=== PATIENT | female | born 1990 | race American Indian/Alaskan Native ===

== ENCOUNTER 2017-10-27 20:55 | Emergency (ER) | payer MEDICAID | END 2017-10-27 21:05 | disposition left against medical advice (07) | LOC: ED 20:55 | DX: R42 Dizziness and giddiness (principal); Z53.21 Procedure and treatment not carried out due to patient leaving prior to being seen by health care provider ==

== ENCOUNTER 2018-01-27 12:53 | Emergency (ER) | payer MEDICAID ==
[2018-01-27 12:59] VITALS: BP 167/98
[2018-01-27 14:21] LABS: HCG Qualitative,Urine Negative (Negative)
[2018-01-27 14:25] LABS: Bacteria,Urine 1+ /HPF (Negative); Bilirubin,Urine NEG (Negative); Blood,Urine NEG (Negative); Color,Urine Yellow (Yellow); Mucus,Urine FEW /HPF; Urobilinogen,Urine < 2.0 mg/dL (<2.0)
== END 2018-01-27 16:15 | disposition left against medical advice (07) ==
LOC: ED 12:53
DX: R10.9 Unspecified abdominal pain (principal); Z53.21 Procedure and treatment not carried out due to patient leaving prior to being seen by health care provider
CPT/HCPCS: 81001; 81025

== ENCOUNTER 2019-12-19 07:29 | Emergency (ER) | payer MEDICAID ==
[2019-12-19 07:40] VITALS: BP 163/104
[2019-12-19 09:48] LABS: Bilirubin,Urine NEG (Negative); Blood,Urine LG (Negative); Color,Urine Yellow (Yellow); Mucus,Urine FEW /HPF; Urobilinogen,Urine < 2.0 mg/dL (<2.0)
[2019-12-19 09:51] LABS: RBC,Urine > 182.0 /HPF (0.0-6.0)
[2019-12-19] MEDS ORDERED: MORPHINE 4 MG/1 ML INJ IV ONE (10:08)
[2019-12-19] MEDS ORDERED: ONDANSETRON 4 MG/2 ML INJ IV ONE (10:08)
[2019-12-19] MEDS ORDERED: SODIUM CHLORIDE 0.9% 1000 ML 1,000 ML IV ONE (10:08)
[2019-12-19 10:30] LABS: Basophils # (Auto) 0.1 K/mm3 (0.0-0.1); Basophils % (Auto) 1.1 % (0.0-1.8); Eosinophils # (Auto) 0.2 K/mm3 (0.0-0.4); Eosinophils % (Auto) 2.4 % (0.0-4.3); Hematocrit 39.4 % (30.3-42.9); Hemoglobin 13.3 gm/dl (10.1-14.3); Lymphocytes # (Auto) 3.4 K/mm3 (1.2-5.4); Lymphocytes % (Auto) 49.3 % (13.4-35.0); Mean Corpuscular HGB Conc 34 % (30-34); Mean Corpuscular Volume 84 fl (79-97); Monocytes # (Auto) 0.3 K/mm3 (0.0-0.8); Monocytes % (Auto) 4.1 % (0.0-7.3); Platelet Count 287 K/mm3 (140-440); Red Blood Count 4.72 M/mm3 (3.65-5.03); Red Cell Distribution Width 13.3 % (13.2-15.2)
[2019-12-19 10:42] LABS: Alanine Aminotransferase 17 units/L (7-56); Albumin 4.1 g/dL (3.9-5); BUN/Creatinine Ratio 18; Blood Urea Nitrogen 9 mg/dL (7-17); Hemolysis Index 13
--- NOTE | 2019-12-19 10:43 | Emergency Department Report ---
ED Abdominal Pain HPI - General Chief Complaint: Abdominal Pain Stated Complaint: LEFT ABD PAIN Time Seen by Provider: 12/19/19 09:00 Source: patient Mode of arrival: Ambulatory Limitations: No Limitations - History of Present Illness Initial Comments: This is a 29-year-old female nontoxic, well nourished in appearance, no acute signs of distress presents to the ED with c/o of nausea and abdominal pain 1 day. Patient denies any vomiting. Patient describes abdominal pain as cramping and aching with level of 8/10 left sided abdominal pain. Patient denies chest pain, short of breath, fever, chills, headache, stiff neck, numbness or tingling. Patient denies any diarrhea or constipation. Patient denies any recent travels. Patient denies any allergies. Patient is currently on her menstrual cycle. MD Complaint: abdominal pain -: days(s) Location: LUQ Radiation: none Migration to: no migration Severity: mild Severity scale (0 -10): 8 Quality: cramping, aching Consistency: constant Improves With: nothing Worsens With: nothing Associated Symptoms: nausea. denies: vomiting, diarrhea, fever, chills, constipation, dysuria, hematemesis, hematochezia, melena, hematuria, anorexia, syncope - Related Data Home Medications Medication Instructions Recorded Confirmed Last Taken Cardizem 240 mg PO DAILY 02/13/15 02/13/15 Unknown Previous Rx's Medication Instructions Recorded Last Taken Type Ondansetron [Zofran Odt] 4 mg PO Q8HR PRN #20 tab.rapdis 12/19/19 Unknown Rx Sulfamethoxazole/Trimethoprim 1 each PO BID #14 tablet 12/19/19 Unknown Rx [Bactrim DS TAB] Allergies Allergy/AdvReac Type Severity Reaction Status Date / Time No Known Allergies Allergy Verified 01/27/18 12:56 ED Review of Systems ROS: Stated complaint: LEFT ABD PAIN Other details as noted in HPI Constitutional: denies: chills, fever Eyes: denies: eye pain, eye discharge, vision change ENT: denies: ear pain, throat pain Respiratory: denies: cough, shortness of breath, wheezing Cardiovascular: denies: chest pain, palpitations Endocrine: no symptoms reported Gastrointestinal: abdominal pain, nausea. denies: vomiting, diarrhea Genitourinary: denies: urgency, dysuria, discharge Musculoskeletal: denies: back pain, joint swelling, arthralgia Skin: denies: rash, lesions Neurological: denies: headache, weakness, paresthesias Psychiatric: denies: anxiety, depression Hematological/Lymphatic: denies: easy bleeding, easy bruising ED Past Medical Hx - Past Medical History Previous Medical History?: Yes Hx Asthma: Yes Additional medical history: MVP - Surgical History Past Surgical History?: Yes Additional Surgical History: C section. Tubal ligation. Hernia repair - Social History Smoking Status: Never Smoker Substance Use Type: None - Medications Home Medications: Home Medications Medication Instructions Recorded Confirmed Last Taken Type Cardizem 240 mg PO DAILY 02/13/15 02/13/15 Unknown History Ondansetron [Zofran Odt] 4 mg PO Q8HR PRN #20 tab.rapdis 12/19/19 Unknown Rx Sulfamethoxazole/Trimethoprim 1 each PO BID #14 tablet 12/19/19 Unknown Rx [Bactrim DS TAB] ED Physical Exam - General Limitations: No Limitations General appearance: alert, in no apparent distress - Head Head exam: Present: atraumatic, normocephalic - Eye Eye exam: Present: normal appearance - Neck Neck exam: Present: normal inspection, full ROM. Absent: tenderness, meningismus, lymphadenopathy - Respiratory Respiratory exam: Present: normal lung sounds bilaterally. Absent: respiratory distress, wheezes, rales, rhonchi, stridor, chest wall tenderness, accessory muscle use, decreased breath sounds, prolonged expiratory - Cardiovascular Cardiovascular Exam: Present: regular rate, normal rhythm, normal heart sounds. Absent: irregular rhythm, systolic murmur, diastolic murmur, rubs, gallop - GI/Abdominal GI/Abdominal exam: Present: soft, tenderness (LUQ), normal bowel sounds. Absent: distended, guarding, rebound, rigid, diminished bowel sounds - Extremities Exam Extremities exam: Present: normal inspection, full ROM - Back Exam Back exam: Present: normal inspection, full ROM. Absent: tenderness, CVA tenderness (R), CVA tenderness (L), muscle spasm, paraspinal tenderness, vertebral tenderness, rash noted - Neurological Exam Neurological exam: Present: alert, oriented X3, normal gait - Psychiatric Psychiatric exam: Present: normal affect, normal mood - Skin Skin exam: Present: warm, dry, intact, normal color. Absent: rash ED Course Vital Signs 12/19/19 07:37 Temperature 98.1 F Pulse Rate 104 H Respiratory 16 Rate Blood Pressure 163/104 O2 Sat by Pulse 98 Oximetry - Reevaluation(s) Reevaluation #1: 12/19/19 10:44 Patient is speaking in full sentences with no signs of distress noted. ED Medical Decision Making - Lab Data Result diagrams: 12/19/19 09:32 12/19/19 09:32 - Medical Decision Making This is a 29-year-old female that presents with abdominal pain. Patient is stable and was examined by me. There is no abdominal tenderness. Negative signs of symptoms of appendicitis. Labs obtained. UA obtained. CT of abdomen obtained and dictated by the radiologist. Patient is notified of the report with no questions noted by the patient. Vital signs are stable prior to discharge. Patient received medical treatment in the ED which patient stated symptoms has resovled and subsided. Was instructed note to operate any machinery due to p ossible drowsiness and stated someone will drive the patient home. A by mouth challenge has been obtained and patient tolerated well with no nausea vomiting. Patient was notified of strict precatuions of appendictis symptoms and to return to the ED if symptoms occurs as soon as possible. Patient was also instructed to Follow-up with a primary care doctor in 3-5 days or if symptoms worsen and continue return to emergency room as soon as possible. At time of discharge, the patient does not seem toxic or ill in appearance. No acute signs of distress noted. Patient agrees to discharge treatment plan of care. No further questions noted by the patient. Critical care attestation.: If time is entered above; I have spent that time in minutes in the direct care of this critically ill patient, excluding procedure time. ED Disposition Clinical Impression: Abdominal pain Qualifiers: Abdominal location: generalized Qualified Code(s): R10.84 - Generalized abdominal pain Nausea & vomiting Qualifiers: Vomiting type: unspecified Vomiting Intractability: non-intractable Qualified Code(s): R11.2 - Nausea with vomiting, unspecified UTI (urinary tract infection) Qualifiers: Urinary tract infection type: acute cystitis Hematuria presence: without hematuria Qualified Code(s): N30.00 - Acute cystitis without hematuria Disposition: TO HOME OR SELFCARE Is pt being admited?: No Does the pt Need Aspirin: No Condition: Stable Instructions: Acute Nausea and Vomiting (ED), Abdominal Pain (ED) Additional Instructions: Follow-up with a primary care doctor in 3-5 days or if symptoms worsen and continue return to emergency room as soon as possible. Prescriptions: Sulfamethoxazole/Trimethoprim [Bactrim DS TAB] 1 each PO BID #14 tablet Ondansetron [Zofran Odt] 4 mg PO Q8HR PRN #20 tab.rapdis PRN Reason: Nausea Referrals: PARMJIT SKELTON MD [Primary Care Provider] - 3-5 Days PRIMARY CAREMD [Referring] - 3-5 Days DENA SEVILLA MD [Staff Physician] - 3-5 Days [facility] [Outside] - 3-5 Days Forms: Work/School Release Form(ED)
--- NOTE | 2019-12-19 12:43 | Cat Scan Report ---
CT abdomen pelvis w con INDICATION: left sided abd pain. TECHNIQUE: All CT scans at this location are performed using the following dose modulation technique: Automated exposure control. Helical slices were obtained through the abdomen and pelvis. 100 cc of Omnipaque 30 0 is administered. COMPARISON: None available. FINDINGS: Abdomen: There is linear atelectasis in the lower chest. The liver, spleen, pancreas, adrenal glands, and kidneys show no acute abnormality. There has been prior hernia repair with mesh. There is no obs truction, inflammation, or free air. There are no abnormal collections. The appendix is unremarkable Pelvis: There is no obstruction or inflammation. There are no abnormal fluid collections. There is no free air. On review of bone windows, no acute osseous abnormalities are seen. On review of bone windows, no acute osseous abnormalities are seen. There is disc protrusion at L4-5. IMPRESSION: 1. There is no obstruction, inflammation, or free air. There are no abnormal fluid collections. The a ppendix is unremarkable. Signer Name: Erasmo Torres MD Signed: 12/19/2019 12:39 PM Workstation Name: [id number]
== END 2019-12-19 15:01 | disposition home or self-care (01) ==
LOC: ED 07:29
DX: R10.84 Generalized abdominal pain (principal); R11.2 Nausea with vomiting, unspecified; N39.0 Urinary tract infection, site not specified
CPT/HCPCS: 36415; 74177; 80053; 81001; 83690; 84703; 85025; 87086; 96361; 96374; 96375; 99284; J2270; J2405; J7030; Q9967

== ENCOUNTER 2019-12-24 16:28 | Emergency (ER) | payer OTHER, MEDICAID ==
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
[2019-12-24 17:09] LABS: Basophils # (Auto) 0.1 K/mm3 (0.0-0.1); Basophils % (Auto) 0.8 % (0.0-1.8); Eosinophils # (Auto) 0.2 K/mm3 (0.0-0.4); Eosinophils % (Auto) 2.1 % (0.0-4.3); Hematocrit 41.5 % (30.3-42.9); Hemoglobin 13.8 gm/dl (10.1-14.3); Lymphocytes # (Auto) 3.3 K/mm3 (1.2-5.4); Lymphocytes % (Auto) 41.3 % (13.4-35.0); Mean Corpuscular HGB Conc 33 % (30-34); Mean Corpuscular Volume 84 fl (79-97); Monocytes # (Auto) 0.4 K/mm3 (0.0-0.8); Monocytes % (Auto) 4.9 % (0.0-7.3); Platelet Count 301 K/mm3 (140-440); Red Blood Count 4.94 M/mm3 (3.65-5.03); Red Cell Distribution Width 13.5 % (13.2-15.2)
[2019-12-24 17:30] LABS: Alanine Aminotransferase 18 units/L (7-56); Albumin 4.5 g/dL (3.9-5); BUN/Creatinine Ratio 17; Blood Urea Nitrogen 10 mg/dL (7-17); Calcium 9.7 mg/dL (8.4-10.2); Hemolysis Index 28
[2019-12-24 17:36] LABS: Bilirubin,Direct < 0.2 mg/dL (0-0.2)
[2019-12-24] MEDS ORDERED: HYDROcodone/ACETAMINOPHEN 5-325 MG TAB PO ONE (19:53)
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
[2019-12-24 20:44] LABS: Bacteria,Urine 2+ /HPF (Negative); Bilirubin,Urine NEG (Negative); Blood,Urine SM (Negative); Color,Urine Yellow (Yellow); Mucus,Urine 1+ /HPF; Urobilinogen,Urine < 2.0 mg/dL (<2.0)
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
--- NOTE | 2019-12-24 20:47 | XRay Report ---
CHEST 2 VIEWS, 12/24/2019 8:13 PM INDICATION: History of cardiac surgery. COMPARISON: Chest radiograph, 11/27/2014 FINDINGS: Support devices: None Heart: The heart appears normal in size. Lungs/pleura: Pulmonary vascularity is within normal limits. There is no focal airspace consolidation or significant pleural effusion. Additional findings: No significant acute abnormality. IMPRESSION: 1. No evidence of acute cardiopulmonary process. Signer Name: Lynn Germain MD Signed: 12/24/2019 8:42 PM Workstation Name: [id number]
[2019-12-24 21:29] VITALS: BP 138/91
== END 2019-12-24 21:33 | disposition home or self-care (01) ==
LOC: ED 16:28
DX: K59.00 Constipation, unspecified (principal); M79.10 Myalgia, unspecified site; R73.9 Hyperglycemia, unspecified; R07.89 Other chest pain; R10.9 Unspecified abdominal pain; M25.511 Pain in right shoulder; M25.512 Pain in left shoulder; J45.909 Unspecified asthma, uncomplicated; Z98.51 Tubal ligation status; Z98.890 Other specified postprocedural states; Z79.899 Other long term (current) drug therapy; V49.49XA Driver injured in collision with other motor vehicles in traffic accident, initial encounter; Y93.89 Activity, other specified; Y92.410 Unspecified street and highway as the place of occurrence of the external cause; Y99.8 Other external cause status
CPT/HCPCS: 36415; 71046; 74019; 80048; 80076; 81001; 83690; 84703; 85025

== ENCOUNTER 2020-08-21 17:19 | Emergency (ER) | payer MEDICAID ==
--- NOTE | 2020-08-21 18:32 | Emergency Department Report ---
Blank Doc - Documentation Documentation: 30-year-old female that presents with dizziness, headache, nausea, and left lo wer abdominal pain. Vitals: HTN and tachycardia 122. This initial assessment/diagnostic orders/clinical plan/treatment(s) is/are subject to change based on patient's health status, clinical progression and re- assessment by fellow clinical providers in the ED. Further treatment and workup at subsequent clinical providers discretion. Patient/guardians urged not to elope from the ED as their condition may be serious if not clinically assessed and managed. Initial orders include: 1-labs 2-EKG 3- CT head
[2020-08-21 18:35] VITALS: BP 178/118
--- NOTE | 2020-08-21 19:34 | Cat Scan Report ---
CT head/brain wo con INDICATION / CLINICAL INFORMATION: 30 years Female; headache/dizziness w/ HTN. TECHNIQUE: Routine CT head without contrast. All CT scans at this location are performed using CT dos e reduction for ALARA by means of automated exposure control. COMPARISON: The study is compared to the previous CT of 02/29/2020. FINDINGS: BRAIN / INTRACRANIAL CONTENTS: The brain parenchyma appears to demonstrate appropriate attenuation wi thout significant interval change from the previous CT. The ventricular system remains unchanged in s ize and configuration. There is no clear CT evidence of acute intracranial hemorrhage or significant mass effect. ORBITS: No significant abnormality of visualized orbits. SINUSES / MASTOIDS: No significant abnormality in the visualized paranasal sinuses or mastoid air luis antonio ls. CRANIOCERVICAL JUNCTION: No significant abnormality. ADDITIONAL FINDINGS: None. IMPRESSION: 1. There is no CT evidence of acute intracranial process. Signer Name: Aristides Iglesias MD Signed: 08/21/2020 7:30 PM Workstation Name: [id number]
[2020-08-21 19:46] LABS: Basophils # (Auto) 0.1 K/mm3 (0.0-0.1); Basophils % (Auto) 0.7 % (0.0-1.8); Eosinophils % (Auto) 0.6 % (0.0-4.3); Hematocrit 41.9 % (30.3-42.9); Lymphocytes # (Auto) 2.7 K/mm3 (1.2-5.4); Lymphocytes % (Auto) 34.7 % (13.4-35.0); Mean Corpuscular HGB Conc 33 % (30-34); Mean Corpuscular Volume 86 fl (79-97); Monocytes # (Auto) 0.4 K/mm3 (0.0-0.8); Platelet Count 324 K/mm3 (140-440); Red Blood Count 4.86 M/mm3 (3.65-5.03); Red Cell Distribution Width 13.3 % (13.2-15.2)
[2020-08-21 20:07] LABS: Alanine Aminotransferase 15 units/L (7-56); Albumin 4.4 g/dL (3.9-5); Blood Urea Nitrogen 8 mg/dL (7-17); Calcium 9.7 mg/dL (8.4-10.2); Hemolysis Index 9
[2020-08-21 20:12] LABS: BUN/Creatinine Ratio 16
[2020-08-21] MEDS ORDERED: METOCLOPRAMIDE 10 MG/2 ML INJ IV ONE (22:08)
[2020-08-21] MEDS ORDERED: diphenhydrAMINE 50 MG/ML VIAL IV ONE (22:08)
[2020-08-21] MEDS ORDERED: SODIUM CHLORIDE 0.9% 1000 ML 1,000 ML IV ONE (22:08)
[2020-08-21 23:16] LABS: Amphetamine Screen,Urine PRESUMPTIVE NEGATIVE; Benzodiazepines Screen,Urine PRESUMPTIVE NEGATIVE; Cannabinoid Screen,Urine PRESUMPTIVE POSITIVE; Cocaine Screen,Urine PRESUMPTIVE NEGATIVE; Methadone Screen,Urine PRESUMPTIVE NEGATIVE; Opiate Screen,Urine PRESUMPTIVE NEGATIVE
[2020-08-21 23:48] LABS: Bacteria,Urine 4+ /HPF (Negative); Bilirubin,Urine NEG (Negative); Blood,Urine LG (Negative); Color,Urine Yellow (Yellow); Mucus,Urine 1+ /HPF; Urobilinogen,Urine < 2.0 mg/dL (<2.0)
[2020-08-21 23:50] LABS: HCG Qualitative,Urine Negative (Negative)
--- NOTE | 2020-08-22 01:00 | Emergency Department Report ---
ED General Adult HPI - General Chief complaint: Vaginal Bleeding Stated complaint: DIZINESS/ABD PAIN/BLEEDING Time Seen by Provider: 08/21/20 18:29 Source: patient Mode of arrival: Ambulatory Limitations: No Limitations - History of Present Illness Initial comments: Patient is a 30-year-old female that presents with dizziness, headache, nausea, and left lower abdominal pain X2 days. Patient states vaginal bleeding stopped on last night. Patient denies fevers or chills. Last nausea /vomiting was 5 hours ago. Patient states history of EtOH and marijuana. Symptoms are exacerbated by p.o. intake. Symptoms are relieved by nothing tried. Patient d enies dysuria, frequency, or urgency. There is no pelvic or back pain patient denies possibility for STD - Related Data Home Medications Medication Instructions Recorded Confirmed Last Taken Cardizem 240 mg PO DAILY 02/13/15 02/13/15 Unknown Previous Rx's Medication Instructions Recorded Last Taken Type Sulfamethoxazole/Trimethoprim 1 each PO BID #14 tablet 12/19/19 Unknown Rx [Bactrim DS TAB] Docusate Sodium [Colace] 100 mg PO BID PRN #14 capsule 12/24/19 Unknown Rx Acetaminophen [Non-Aspirin Extra 500 mg PO Q6HR PRN #30 tablet 05/21/20 Unknown Rx Strength] Famotidine [Pepcid] 20 mg PO BID #60 tablet 05/21/20 Unknown Rx Angelica Root [Angelica] 250 mg PO QID PRN #30 capsule 05/21/20 Unknown Rx Metoclopramide [Reglan] 10 mg PO QID PRN #30 tablet 05/21/20 Unknown Rx Ciprofloxacin HCl [Ciprofloxacin 500 mg PO BID 7 Days #14 tablet 08/22/20 Unknown Rx TAB] Ibuprofen [Motrin 800 MG tab] 800 mg PO Q8HR PRN #30 tablet 08/22/20 Unknown Rx Allergies Allergy/AdvReac Type Severity Reaction Status Date / Time No Known Allergies Allergy Verified 01/27/18 12:56 ED Review of Systems ROS: Stated complaint: DIZINESS/ABD PAIN/BLEEDING Other details as noted in HPI Constitutional: denies: chills, fever Eyes: denies: eye pain, eye discharge, vision change ENT: denies: ear pain, throat pain Respiratory: no symptoms reported Cardiovascular: denies: chest pain, palpitations Endocrine: no symptoms reported Gastrointestinal: abdominal pain, nausea, vomiting Genitourinary: denies: urgency, dysuria, discharge Musculoskeletal: denies: back pain, joint swelling, arthralgia Skin: denies: rash, lesions Neurological: denies: headache, weakness, paresthesias Psychiatric: denies: anxiety, depression Hematological/Lymphatic: denies: easy bleeding, easy bruising ED Past Medical Hx - Past Medical History Previous Medical History?: Yes Hx Hypertension: Yes Hx Diabetes: Yes Hx Asthma: Yes Additional medical history: MVP - Surgical History Past Surgical History?: Yes Additional Surgical History: C section. Tubal ligation. Hernia repair - Social History Smoking Status: Never Smoker Substance Use Type: None - Medications Home Medications: Home Medications Medication Instructions Recorded Confirmed Last Taken Type Cardizem 240 mg PO DAILY 02/13/15 02/13/15 Unknown History Sulfamethoxazole/Trimethoprim 1 each PO BID #14 tablet 12/19/19 Unknown Rx [Bactrim DS TAB] Docusate Sodium [Colace] 100 mg PO BID PRN #14 capsule 12/24/19 Unknown Rx Acetaminophen [Non-Aspirin Extra 500 mg PO Q6HR PRN #30 tablet 05/21/20 Unknown Rx Strength] Famotidine [Pepcid] 20 mg PO BID #60 tablet 05/21/20 Unknown Rx Angelica Root [Angelica] 250 mg PO QID PRN #30 capsule 05/21/20 Unknown Rx Metoclopramide [Reglan] 10 mg PO QID PRN #30 tablet 05/21/20 Unknown Rx Ciprofloxacin HCl [Ciprofloxacin 500 mg PO BID 7 Days #14 tablet 08/22/20 Un known Rx TAB] Ibuprofen [Motrin 800 MG tab] 800 mg PO Q8HR PRN #30 tablet 08/22/20 Unknown Rx ED Physical Exam - General Limitations: No Limitations General appearance: alert, in no apparent distress - Head Head exam: Present: atraumatic, normocephalic - Eye Eye exam: Present: normal appearance, PERRL, EOMI - ENT ENT exam: Present: mucous membranes moist - Neck Neck exam: Present: normal inspection, full ROM (Discharge). Absent: tenderness - Respiratory Respiratory exam: Present: normal lung sounds bilaterally. Absent: respiratory distress, wheezes, stridor, chest wall tenderness - Cardiovascular Cardiovascular Exam: Present: regular rate, normal rhythm, normal heart sounds - GI/Abdominal GI/Abdominal exam: Present: soft, normal bowel sounds. Absent: distended, tenderness, guarding, rebound, rigid, bruit, hernia - Rectal Rectal exam: Present: deferred - Extremities Exam Extremities exam: Present: normal inspection - Back Exam Back exam: Present: normal inspection, full ROM. Absent: tenderness, CVA tenderness (R), CVA tenderness (L), vertebral tenderness - Neurological Exam Neurological exam: Present: alert, oriented X3, CN II-XII intact, normal gait - Psychiatric Psychiatric exam: Present: normal affect, normal mood - Skin Skin exam: Present: warm, dry, intact, normal color. Absent: rash ED Course Vital Signs 08/21/20 18:34 Temperature 97.8 F Pulse Rate 112 H Respiratory 28 H Rate Blood Pressure 178/118 [Right] O2 Sat by Pulse 97 Oximetry ED Medical Decision Making - Lab Data Result diagrams: 08/21/20 19:23 08/21/20 19:23 Labs 08/21/20 08/21/20 08/21/20 18:49 19:23 19:23 WBC 7.9 RBC 4.86 Hgb 14.0 Hct 41.9 MCV 86 MCH 29 MCHC 33 RDW 13.3 Plt Count 324 Lymph % (Auto) 34.7 [place] % (Auto) 5.0 Eos % (Auto) 0.6 Baso % (Auto) 0.7 Lymph # (Auto) 2.7 [place] # (Auto) 0.4 Eos # (Auto) 0.0 Baso # (Auto) 0.1 Seg Neutrophils % 59.0 Seg Neutrophils # 4.6 Sodium 133 L Potassium 4.1 Chloride 93.5 L Carbon Dioxide 25 Anion Gap 19 BUN 8 Creatinine 0.5 L Estimated GFR > 60 BUN/Creatinine Ratio 16 Glucose 262 H POC Glucose 225 H Calcium 9.7 Total Bilirubin 0.20 AST 17 ALT 15 Alkaline Phosphatase 76 Troponin T < 0.010 Total Protein 8.7 H Albumin 4.4 Albumin/Globulin Ratio 1.0 Urine Color Urine Turbidity Urine pH Ur Specific [place] Urine Protein Urine Glucose (UA) Urine Ketones Urine Blood Urine Nitrite Urine Bilirubin Urine Urobilinogen Ur Leukocyte Esterase Urine WBC (Auto) Urine RBC (Auto) U Epithel Cells (Auto) Urine Bacteria (Auto) Urine Mucus Urine HCG, Qual Urine Opiates Screen Urine Methadone Screen Ur Barbiturates Screen Ur Phencyclidine Scrn Ur Amphetamines Screen U Benzodiazepines Scrn Urine Cocaine Screen U Marijuana (THC) Screen Drugs of Abuse Note 08/21/20 08/21/20 08/21/20 22:54 22:55 22:55 WBC RBC Hgb Hct MCV MCH MCHC RDW Plt Count Lymph % (Auto) [place] % (Auto) Eos % (Auto) Baso % (Auto) Lymph # (Auto) [place] # (Auto) Eos # (Auto) Baso # (Auto) Seg Neutrophils % Seg Neutrophils # Sodium Potassium Chloride Carbon Dioxide Anion Gap BUN Creatinine Estimated GFR BUN/Creatinine Ratio Glucose POC Glucose Calcium Total Bilirubin AST ALT Alkaline Phosphatase Troponin T Total Protein Albumin Albumin/Globulin Ratio Urine Color Yellow Urine Turbidity Cloudy Urine pH 7.0 Ur Specific [place] 1.020 Urine Protein 100 mg/dl Urine Glucose (UA) >=500 Urine Ketones Tr Urine Blood Lg Urine Nitrite Pos Urine Bilirubin Neg Urine Urobilinogen < 2.0 Ur Leukocyte Esterase Sm Urine WBC (Auto) 22.0 H Urine RBC (Auto) 7.0 U Epithel Cells (Auto) 33.0 H Urine Bacteria (Auto) 4+ Urine Mucus 1+ Urine HCG, Qual Negative Urine Opiates Screen Presumptive negative Urine Methadone Screen Presumptive negative Ur Barbiturates Screen Presumptive negative Ur Phencyclidine Scrn Presumptive negative Ur Amphetamines Screen Presumptive negative U Benzodiazepines Scrn Presumptive negative Urine Cocaine Screen Presumptive negative U Marijuana (THC) Screen Presumptive positive Drugs of Abuse Note Disclamer - Radiology Data Radiology results: report reviewed, image reviewed Patient Name: ALINE FUNEZ Gender: Female Date of : 1990 Referring Provider: GIFTY CUEVAS Organization: [facility] Accession Number: [id number] Requested Date: August 21, 2020 18:33 Report Status: Final Requested Procedure: 1 Procedure Description: CT head/brain wo con Modality: CT Findings Reporting MD: Aristides Iglesias Dictation Time: August 21, 2020 18:30 Residency Director: Not available Supervisor [employer] Date: CT head/brain wo con INDICATION / CLINICAL INFORMATION: 30 years Female; headache/dizziness w/ HTN. TECHNIQUE: Routine CT head without contrast. All CT scans at this location are performed using CT dose reduction for ALARA by means of automated exposure control. COMPARISON: The study is compared to the previous CT of 02/29/2020. FINDINGS: BRAIN / INTRACRANIAL CONTENTS: The brain parenchyma appears to demonstrate appropriate attenuation without significant interval change from the previous CT. The ventricular system remains unchanged in size and configuration. There is no clear CT evidence of acute intracranial hemorrhage or significant mass effect. ORBITS: No significant abnormality of visualized orbits. SINUSES / MASTOIDS: No significant abnormality in the visualized paranasal sinuses or mastoid air cells. CRANIOCERVICAL JUNCTION: No significant abnormality. ADDITIONAL FINDINGS: None. IMPRESSION: 1. There is no CT evidence of acute intracranial process. Signer Name: Aristides Iglesias MD Signed: 08/21/2020 6:30 PM Workstation Name: [id number] - Medical Decision Making Symptoms improved , pt is tolerating po intake, UA: pos Leuk, Nitrates, [place], , plan: Cipro, ibuprofen , hydrated, follow up with pcp in 2-3 days. Critical care attestation.: If time is entered above; I have spent that time in minutes in the direct care of this critically ill patient, excluding procedure time. ED Disposition Clinical Impression: UTI (urinary tract infection) Qualifiers: Urinary tract infection type: acute cystitis Hematuria presence: without hematuria Qualified Code(s): N30.00 - Acute cystitis without hematuria Disposition: DC- TO HOME OR SELFCARE Is pt being admited?: No Does the pt Need Aspirin: No Condition: Stable Instructions: Urinary Tract Infection in Women (ED) Prescriptions: Ciprofloxacin HCl [Ciprofloxacin TAB] 500 mg PO BID 7 Days #14 tablet Ibuprofen [Motrin 800 MG tab] 800 mg PO Q8HR PRN #30 tablet PRN Reason: pain Referrals: GUERITA HOFF MD [Staff Physician] - 3-5 Days Forms: Work/School Release Form(ED) Time of Disposition: 01:13
== END 2020-08-22 01:20 | disposition home or self-care (01) ==
LOC: ED 17:19
DX: N39.0 Urinary tract infection, site not specified (principal); I10 Essential (primary) hypertension; E11.9 Type 2 diabetes mellitus without complications; J45.909 Unspecified asthma, uncomplicated; Z79.899 Other long term (current) drug therapy; Z98.890 Other specified postprocedural states; Z98.51 Tubal ligation status
CPT/HCPCS: 36415; 70450; 80053; 80307; 81001; 81025; 82962; 84484; 85025; 87086; 96361; 96374; 96375; 99284; J1200; J2765; J7030; 87076; 87186

== ENCOUNTER 2020-10-01 17:19 | Emergency (ER) | payer MEDICAID ==
[2020-10-01 17:55] VITALS: BP 154/113
== END 2020-10-01 19:42 | disposition left against medical advice (07) ==
LOC: ED 17:19
DX: R51.9 Headache, unspecified (principal); R42 Dizziness and giddiness; R11.0 Nausea; Z53.21 Procedure and treatment not carried out due to patient leaving prior to being seen by health care provider

== ENCOUNTER 2021-02-14 09:50 | Emergency (ER) | payer MEDICAID ==
[2021-02-14 10:25] VITALS: BP 166/101
[2021-02-14] MEDS ORDERED: RABIES IMMUNE GLOBULIN P/F 300 UNIT/ML INJ 5 ML IM ONE ×2 (11:00)
[2021-02-14] MEDS ORDERED: RABIES VACCINE, HUMAN DIPLOID/PF 2.5 UNIT/ML VIAL IM ONE (11:00)
--- NOTE | 2021-02-14 11:16 | Emergency Department Report ---
ED Animal Bite HPI - General Chief Complaint: Animal Bite Stated Complaint: POSSIBLE RABIES EXPOSURE Time Seen by Provider: 02/14/21 10:19 Source: patient Mode of arrival: Ambulatory Limitations: No Limitations - History of Present Illness Initial Comments: This is a 30-year-old female brought by mother nontoxic, well nourished in appearance, no acute signs of distress presents to the ED with c/o of possible cat scratch to left hand that occurred yesterday. Patient stated she just bought the cat and while the cat was outside started to foam out of the mouth and ran away and possibly scratched her. Patient denies any visual is of abrasions. Patient denies any head trauma or any other trauma. PAtient denies any information on vaccines. Patient states that he is up-to-date with tetanus. Patient denies any fever, chills, nausea, vomiting, headache, stiff neck. Patient denies any allergies or significant past medical history. Patient stat ed is unable to locate the cat. Patient stated last tetanus shot was in 2016. -: days(s) Left: Hand Animal: cat Animal Control Notified: No Description: household pet Mechanism: scratch Severity scale (0 -10): 3 Context: unprovoked Associated Symptoms: none. denies: erythema, discharge from wound, bleeding, fever, chills, rash, loss of consciousness, cough, headache, diaphoresis, shortness of breath - Related Data Patient Tetanus UTD: Yes (2016) Home Medications Medication Instructions Recorded Confirmed Last Taken Cardizem 240 mg PO DAILY 02/13/15 02/13/15 Unknown Previous Rx's Medication Instructions Recorded Last Taken Type Sulfamethoxazole/Trimethoprim 1 each PO BID #14 tablet 12/19/19 Unknown Rx [Bactrim DS TAB] Docusate Sodium [Colace] 100 mg PO BID PRN #14 capsule 12/24/19 Unknown Rx Acetaminophen [Non-Aspirin Extra 500 mg PO Q6HR PRN #30 tablet 05/21/20 Unknown Rx Strength] Famotidine [Pepcid] 20 mg PO BID #60 tablet 05/21/20 Unknown Rx Angelica Root [Angelica] 250 mg PO QID PRN #30 capsule 05/21/20 Unknown Rx Metoclopramide [Reglan] 10 mg PO QID PRN #30 tablet 05/21/20 Unknown Rx Ciprofloxacin HCl [Ciprofloxacin 500 mg PO BID 7 Days #14 tablet 10/28/20 Unknown Rx TAB] Ibuprofen [Motrin 800 MG tab] 800 mg PO Q8HR PRN #30 tablet 08/22/20 Unknown Rx Azithromycin [Zithromax Z-LASHAUN] 250 mg PO DAILY #6 tablet 02/14/21 Unknown Rx Allergies Allergy/AdvReac Type Severity Reaction Status Date / Time No Known Allergies Allergy Verified 02/14/21 10:21 ED Review of Systems ROS: Stated complaint: POSSIBLE RABIES EXPOSURE Other details as noted in HPI Comment: All other systems reviewed and negative Constitutional: denies: chills, fever Eyes: denies: eye pain, eye discharge, vision change ENT: denies: ear pain, throat pain Respiratory: denies: cough, shortness of breath, wheezing Cardiovascular: denies: chest pain, palpitations Endocrine: no symptoms reported Gastrointestinal: denies: abdominal pain, nausea, diarrhea Genitourinary: denies: urgency, dysuria, discharge Musculoskeletal: denies: back pain, joint swelling, arthralgia Skin: denies: rash, lesions Neurological: denies: headache, weakness, paresthesias Psychiatric: denies: anxiety, depression Hematological/Lymphatic: denies: easy bleeding, easy bruising ED Past Medical Hx - Past Medical History Hx Hypertension: Yes Hx Diabetes: Yes Hx Asthma: Yes Additional medical history: MVP - Surgical History Additional Surgical History: C section. Tubal ligation. Hernia repair - Social History Smoking Status: Never Smoker Substance Use Type: None - Medications Home Medications: Home Medications Medication Instructions Recorded Confirmed Last Taken Type Cardizem 240 mg PO DAILY 02/13/15 02/13/15 Unknown History Sulfamethoxazole/Trimethoprim 1 each PO BID #14 tablet 12/19/19 Unknown Rx [Bactrim DS TAB] Docusate Sodium [Colace] 100 mg PO BID PRN #14 capsule 12/24/19 Unknown Rx Acetaminophen [Non-Aspirin Extra 500 mg PO Q6HR PRN #30 tablet 05/21/20 Unknown Rx Strength] Famotidine [Pepcid] 20 mg PO BID #60 tablet 05/21/20 Unknown Rx Angelica Root [Angelica] 250 mg PO QID PRN #30 capsule 05/21/20 Unknown Rx Metoclopramide [Reglan] 10 mg PO QID PRN #30 tablet 05/21/20 Unknown Rx Ciprofloxacin HCl [Ciprofloxacin 500 mg PO BID 7 Days #14 tablet 08/22/20 Unknown Rx TAB] Ibuprofen [Motrin 800 MG tab] 800 mg PO Q8HR PRN #30 tablet 08/22/20 Unknown Rx Azithromycin [Zithromax Z-LASHAUN] 250 mg PO DAILY #6 tablet 02/14/21 Unknown Rx ED Physical Exam - General Limitations: No Limitations General appearance: alert, in no apparent distress - Head Head exam: Present: atraumatic, normocephalic - Eye Eye exam: Present: normal appearance - Neck Neck exam: Present: normal inspection, full ROM - Respiratory Respiratory exam: Absent: respiratory distress - Cardiovascular Cardiovascular Exam: Present: regular rate - Extremities Exam Extremities exam: Present: normal inspection, full ROM, normal capillary refill. Absent: tenderness, joint swelling - Back Exam Back exam: Present: normal inspection, full ROM - Neurological Exam Neurological exam: Present: alert, oriented X3, normal gait - Psychiatric Psychiatric exam: Present: normal affect, normal mood - Skin Skin exam: Present: warm, dry, intact, normal color. Absent: rash ED Course Vital Signs 02/14/21 10:24 Temperature 98.5 F Pulse Rate 102 H Respiratory 20 Rate Blood Pressure 166/101 [Right] O2 Sat by Pulse 95 Oximetry - Reevaluation(s) Reevaluation #1: 02/14/21 11:14 Patient is speaking in full sentences with no signs of distress noted. Critical care attestation.: If time is entered above; I have spent that time in minutes in the direct care of this critically ill patient, excluding procedure time. ED Disposition Clinical Impression: Cat scratch of hand Qualifiers: Encounter type: initial encounter Laterality: left Qualified Code(s): S60.512A - Abrasion of left hand, initial encounter; W55.03XA - Scratched by cat, initial encounter Disposition: DC-01 TO HOME OR SELFCARE Is pt being admited?: No Does the pt Need Aspirin: No Condition: Stable Instructions: Abrasion, Rabies, Rabies Immune Globulin, human RIG solution for injection Additional Instructions: Follow-up with a primary care doctor in 3-5 days or if symptoms worsen and continue return to emergency room as soon as possible. You have been given referrals to complete your rabies vaccines on days 02/17/2021, 02/21/2021, and 02/28/2021. Prescriptions: Azithromycin [Zithromax Z-LASHAUN] 250 mg PO DAILY #6 tablet Referrals: PRIMARY CARE, [Referring] - 3-5 Days DENA SEVILLA MD [Staff Physician] - 3-5 Days Time of Disposition: 11:19 ED Medical Decision Making - Medical Decision Making 30-year-old female that presents with cat scratch and possible rabies exposure. Patient is stable and was examined by me. Patient received immunoglobulin and rabies vaccine. Patient be discharged with a Z-Lashaun. Patient was instructed to receive the rabies vaccine 3,7, and 14. Patient was given referrals to get the full rabies vaccine. Patient was instructed to follow-up with a primary care doctor in 3-5 days or if symptoms worsen and continue return to emergency room as soon as possible. At time of discharge, the patient does not seem toxic or ill in appearance. No acute signs of distress noted. Patient agrees to discharge treatment plan of care. No further questions noted by the patient.
== END 2021-02-14 11:32 | disposition home or self-care (01) ==
LOC: ED 09:50
DX: S60.512A Abrasion of left hand, initial encounter (principal); I10 Essential (primary) hypertension; E11.9 Type 2 diabetes mellitus without complications; J45.909 Unspecified asthma, uncomplicated; Z98.890 Other specified postprocedural states; Z79.1 Long term (current) use of non-steroidal anti-inflammatories (NSAID); Z79.2 Long term (current) use of antibiotics; Z79.899 Other long term (current) drug therapy; W55.03XA Scratched by cat, initial encounter; Y93.89 Activity, other specified; Y92.89 Other specified places as the place of occurrence of the external cause; Y99.8 Other external cause status
CPT/HCPCS: 90375; 90471; 90675; 96372; 99282

== ENCOUNTER 2021-04-02 19:46 | Emergency (ER) | payer MEDICAID ==
[2021-04-02 21:06] VITALS: BP 150/83
--- NOTE | 2021-04-02 22:58 | Cat Scan Report ---
CT abdomen pelvis wo con INDICATION / CLINICAL INFORMATION: Patient complains of abdominal pain with vomiting x 1 day.. TECHNIQUE: Axial CT imaging of abdomen and pelvis was obtained without contrast. Coronal and sagittal reformatte d imaging obtained and reviewed. All CT scans at this location are performed using CT dose reduction for ALARA by means of automated exposure control. COMPARISON: None available. FINDINGS: CT abdomen without contrast demonstrates grossly normal appearance of the liver, spleen, pancreas, ki dneys, and adrenal glands. Gallbladder is present and without appreciable abnormality. CT pelvis without contrast demonstrates a mildly enlarged uterus. No pelvic mass, free fluid, or foca l inflammatory changes noted. A normal appendix is present. There is a large amount of stool seen thr oughout the colon suggesting mild constipation. The GI tract is otherwise unremarkable. Visualized lung bases are clear. No acute osseous abnormality. IMPRESSION: 1. No acute finding within the abdomen or pelvis. 2. Moderate amount retained stool present throughout the colon suggesting constipation. Signer Name: Soumya Conroy MD Signed: 04/02/2021 10:54 PM Workstation Name: [id number]
[2021-04-02 23:04] LABS: Basophils # (Auto) 0.1 K/mm3 (0.0-0.1); Basophils % (Auto) 1.6 % (0.0-1.8); Eosinophils # (Auto) 0.2 K/mm3 (0.0-0.4); Eosinophils % (Auto) 1.7 % (0.0-4.3); Hematocrit 39.7 % (30.3-42.9); Hemoglobin 13.1 gm/dl (10.1-14.3); Lymphocytes # (Auto) 3.4 K/mm3 (1.2-5.4); Lymphocytes % (Auto) 35.4 % (13.4-35.0); Mean Corpuscular HGB Conc 33 % (30-34); Mean Corpuscular Volume 83 fl (79-97); Monocytes # (Auto) 0.5 K/mm3 (0.0-0.8); Monocytes % (Auto) 4.9 % (0.0-7.3); Platelet Count 295 K/mm3 (140-440); Red Blood Count 4.79 M/mm3 (3.65-5.03); Red Cell Distribution Width 13.3 % (13.2-15.2)
[2021-04-02 23:27] LABS: Alanine Aminotransferase 20 units/L (7-56); Albumin 4.4 g/dL (3.9-5); Blood Urea Nitrogen 11 mg/dL (7-17); Calcium 9.3 mg/dL (8.4-10.2); Hemolysis Index 5
[2021-04-03] LABS: BUN/Creatinine Ratio 22; Bilirubin,Direct < 0.2 mg/dL (0-0.2)
--- NOTE | 2021-04-03 01:40 | Emergency Department Report ---
<JOSEFALETHEA - Last Filed: 04/16/21 22:46> ED Abdominal Pain HPI - General Chief Complaint: Abdominal Pain Stated Complaint: CHEST PAIN/VOMITING/STOMACH PAIN Time Seen by Provider: 04/02/21 21:17 Source: patient Mode of arrival: Ambulatory Limitations: No Limitations - History of Present Illness MD Complaint: abdominal pain -: Gradual, days(s) (2) Location: epigastric Radiation: none Migration to: other Severity: mild, moderate Quality: dull (Chest area) Consistency: constant Improves With: nothing Worsens With: nothing Associated Symptoms: denies: nausea, vomiting, diarrhea, constipation, melena, anorexia, syncope - Related Data Home Medications Medication Instructions Recorded Confirmed Last Taken Cardizem 240 mg PO DAILY 02/13/15 02/13/15 Unknown Previous Rx's Medication Instructions Recorded Last Taken Type Sulfamethoxazole/Trimethoprim 1 each PO BID #14 tablet 12/19/19 Unknown Rx [Bactrim DS TAB] Docusate Sodium [Colace] 100 mg PO BID PRN #14 capsule 12/24/19 Unknown Rx Acetaminophen [Non-Aspirin Extra 500 mg PO Q6HR PRN #30 tablet 05/21/20 Unknown Rx Strength] Famotidine [Pepcid] 20 mg PO BID #60 tablet 05/21/20 Unknown Rx Angelica Root [Angelica] 250 mg PO QID PRN #30 capsule 05/21/20 Unknown Rx Metoclopramide [Reglan] 10 mg PO QID PRN #30 tablet 05/21/20 Unknown Rx Ciprofloxacin HCl [Ciprofloxacin 500 mg PO BID 7 Days #14 tablet 08/22/20 Unknown Rx TAB] Ibuprofen [Motrin 800 MG tab] 800 mg PO Q8HR PRN #30 tablet 08/22/20 Unknown Rx Azithromycin [Zithromax Z-LASHAUN] 250 mg PO DAILY #6 tablet 02/14/21 Unknown Rx Hyoscyamine Subl [Levsin Sl 0.125 0.125 mg SL Q4HR PRN #20 tablet 04/03/21 Unknown Rx TAB] Lactulose [Cephulac] 30 gm PO Q6HR #450 ml 04/03/21 Unknown Rx Allergies Allergy/AdvReac Type Severity Reaction Status Date / Time No Known Allergies Allergy Verified 02/14/21 10:21 ED Review of Systems Comment: All other systems reviewed and negative ED Past Medical Hx - Past Medical History Hx Hypertension: Yes Hx Diabetes: Yes Hx Asthma: Yes Additional medical history: MVP - Surgical History Additional Surgical History: C section. Tubal ligation. Hernia repair. open heart - Social History Smoking Status: Never Smoker Substance Use Type: None - Medications Home Medications: Home Medications Medication Instructions Recorded Confirmed Last Taken Type Cardizem 240 mg PO DAILY 02/13/15 02/13/15 Unknown History Sulfamethoxazole/Trimethoprim 1 each PO BID #14 tablet 12/19/19 Unknown Rx [Bactrim DS TAB] Docusate Sodium [Colace] 100 mg PO BID PRN #14 capsule 12/24/19 Unknown Rx Acetaminophen [Non-Aspirin Extra 500 mg PO Q6HR PRN #30 tablet 05/21/20 Unknown Rx Strength] Famotidine [Pepcid] 20 mg PO BID #60 tablet 05/21/20 Unknown Rx Angelica Root [Angelica] 250 mg PO QID PRN #30 capsule 05/21/20 Unknown Rx Metoclopramide [Reglan] 10 mg PO QID PRN #30 tablet 05/21/20 Unknown Rx Ciprofloxacin HCl [Ciprofloxacin 500 mg PO BID 7 Days #14 tablet 08/22/20 Unknown Rx TAB] Ibuprofen [Motrin 800 MG tab] 800 mg PO Q8HR PRN #30 tablet 08/22/20 Unknown Rx Azithromycin [Zithromax Z-LASHAUN] 250 mg PO DAILY #6 tablet 02/14/21 Unknown Rx Hyoscyamine Subl [Levsin Sl 0.125 0.125 mg SL Q4HR PRN #20 tablet 04/03/21 Unknown Rx TAB] Lactulose [Cephulac] 30 gm PO Q6HR #450 ml 04/03/21 Unknown Rx ED Physical Exam - General Limitations: No Limitations General appearance: alert, in no apparent distress - Head Head exam: Present: atraumatic, normocephalic - Eye Eye exam: Present: normal appearance, PERRL, EOMI - ENT ENT exam: Present: mucous membranes moist - Neck Neck exam: Present: normal inspection - Respiratory Respiratory exam: Present: normal lung sounds bilaterally. Absent: respiratory distress - Cardiovascular Cardiovascular Exam: Present: regular rate, normal rhythm. Absent: systolic murmur, diastolic murmur, rubs, gallop - GI/Abdominal GI/Abdominal exam: Present: soft, tenderness (Symptoms numbness with palpation. Decreased tympany. No effusion, no lymphadenopathy. No lymphangitis. No Rovsing, no Justice Liang no [place] sign. No CVA tenderness noted), normal bowel sounds - Extremities Exam Extremities exam: Present: normal inspection - Back Exam Back exam: Present: normal inspection - Neurological Exam Neurological exam: Present: alert, oriented X3 - Psychiatric Psychiatric exam: Present: normal affect, normal mood - Skin Skin exam: Present: warm, dry, intact, normal color. Absent: rash ED Medical Decision Making - Lab Data Result diagrams: 04/02/21 22:37 04/02/21 22:37 - Radiology Data Radiology results: report reviewed [address] [place] [address] Cat Scan Report Signed Patient: ALINE FUNEZ MR#: [id number] : 1990 Acct:[id number] Age/Sex: 30 / F ADM Date: 04/02/21 Loc: ED Attending Dr: Ordering Physician: ELIJAH STATON Date of Service: 04/02/21 Procedure(s): CT abdomen pelvis wo con Accession Number(s): [id number] cc: ELIJAH STATON CT abdomen pelvis wo con INDICATION / CLINICAL INFORMATION: Patient complains of abdominal pain with vomiting x 1 day.. TECHNIQUE: Axial CT imaging of abdomen and pelvis was obtained without contrast. Coronal and sagittal reformatted imaging obtained and reviewed. All CT scans at this location are performed using CT dose reduction for ALARA by means of automated exposure control. COMPARISON: None available. FINDINGS: CT abdomen without contrast demonstrates grossly normal appearance of the liver, spleen, pancreas, kidneys, and adrenal glands. Gallbladder is present and without appreciable abnormality. CT pelvis without contrast demonstrates a mildly enlarged uterus. No pelvic mass, free fluid, or focal inflammatory changes noted. A normal appendix is present. There is a large amount of stool seen throughout the colon suggesting mild constipation. The GI tract is otherwise unremarkable. Visualized lung bases are clear. No acute osseous abnormality. IMPRESSION: 1. No acute finding within the abdomen or pelvis. 2. Moderate amount retained stool present throughout the colon suggesting constipation. Signer Name: Soumya Conroy MD Signed: 04/02/2021 10:54 PM Workstation Name: [id number] Transcribed By: Dictated By: Soumya Conroy MD Electronically Authenticated By: Soumya Conroy MD Signed Date/Time: 04/02/212253 DD/ 48 TD/TT: - Medical Decision Making This patient presents with abdominal pain of unclear etiology. May be secondary to constipation which was found on CT scan. A CT scan was performed to evaluate for potential causes of the abdominal pain, however, neither the clinical exam nor the CT has identified an emergent etiology for the abdominal pain. Specifically, given the benign exam, the laboratory studies, and unremarkable CT, I have a very low suspicion for appendicitis, ischemic bowel, bowel perforation, or any other life threatening disease. I have discussed with the patient the level of uncertainty with undifferentiated abdominal pain and clearly explained the need to follow-up as noted on the discharge instructions, or return to the Emergency Department immediately if the pain worsens, develops fever, persistent and uncontrollable vomiting, or for any new symptoms or concerns. ED Disposition Clinical Impression: Abdominal pain, Constipation, Hyperglycemia Disposition: DC-01 TO HOME OR SELFCARE Is pt being admited?: No Does the pt Need Aspirin: No Condition: Stable Instructions: Abdominal Pain, Adult, Constipation, Adult, Abdominal Pain (ED) Prescriptions: Lactulose [Cephulac] 30 gm PO Q6HR #450 ml Hyoscyamine Subl [Levsin Sl 0.125 TAB] 0.125 mg SL Q4HR PRN #20 tablet PRN Reason: Spasms Referrals: [facility] [Provider Group] - 3-5 Days [facility] [Provider Group] - 3-5 Days <HAILY PIZARRO - Last Filed: 04/17/21 17:00> ED Review of Systems ROS: Stated complaint: CHEST PAIN/VOMITING/STOMACH PAIN Other details as noted in HPI ED Course Vital Signs 04/02/21 04/03/21 20:43 01:30 Temperature 99.2 F Pulse Rate 97 H 88 Respiratory 20 16 Rate Blood Pressure 150/83 O2 Sat by Pulse 96 98 Oximetry ED Medical Decision Making - Lab Data Result diagrams: 04/02/21 22:37 04/02/21 22:37 Critical care attestation.: If time is entered above; I have spent that time in minutes in the direct care of this critically ill patient, excluding procedure time. ED Disposition Is pt being admited?: No
== END 2021-04-03 01:30 | disposition home or self-care (01) ==
LOC: ED 19:46
DX: R07.89 Other chest pain (principal); R10.9 Unspecified abdominal pain; I10 Essential (primary) hypertension; E11.9 Type 2 diabetes mellitus without complications; J45.909 Unspecified asthma, uncomplicated; Z98.890 Other specified postprocedural states; Z79.2 Long term (current) use of antibiotics; Z79.899 Other long term (current) drug therapy
CPT/HCPCS: 36415; 74176; 80048; 80076; 83690; 84703; 85025

== ENCOUNTER 2022-02-17 08:02 | Emergency (ER) | payer MEDICAID ==
[2022-02-17] MEDS ORDERED: diphenhydrAMINE 50 MG/ML VIAL IV ONE (10:22)
[2022-02-17] MEDS ORDERED: METOCLOPRAMIDE 10 MG/2 ML INJ IV ONE (10:22)
[2022-02-17] MEDS ORDERED: KETOROLAC 30 MG/1 ML INJ IV ONE (10:22)
--- NOTE | 2022-02-17 10:27 | Emergency Department Report ---
ED ENT HPI - General Chief complaint: Earache Stated complaint: HEAD PAIN AND RT EAR PAIN Time Seen by Provider: 02/17/22 10:14 Source: patient Mode of arrival: Ambulatory Limitations: No Limitations - History of Present Illness Initial comments: 31-year-old -[place] female presents to the emergency room complaining of right ear pain and headache x2 days. Patient states that her right ear she tried to flush with eardrops and now has ear pain. She states that her headache started on the right side and it feels full. Says on the left side she has a mild headache. She does admit to some nausea but no vomiting. She states that she has some dizziness which consists of the room is spinning. She denies any recent falls. She denies any vomiting. States that she had a subjective fever. It was noted that patient's blood pressure is elevated and review of chart shows is been elevated several times in the past. When asked patient states that her doctor took her off her lisinopril just before the pandemic and has not followed up. MD complaint: ear pain Onset/Timin -: days(s) Location: R ear Severity: moderate Severity scale (0 -10): 6 Quality: stabbing, aching, sharp Consistency: constant Improves with: none Worsens with: movement (Of the ear) Associated Symptoms: fever (Subjective), tinnitus, hearing loss. denies: gum swelling, toothache, sore throat, discharge from ear, rhinorrhea - Related Data Home Medications Medication Instructions Recorded Confirmed Last Taken Cardizem 240 mg PO DAILY 02/13/15 02/13/15 Unknown Previous Rx's Medication Instructions Recorded Last Taken Type Sulfamethoxazole/Trimethoprim 1 each PO BID #14 tablet 12/19/19 Unknown Rx [Bactrim DS TAB] Docusate Sodium [Colace] 100 mg PO BID PRN #14 capsule 12/24/19 Unknown Rx Acetaminophen [Non-Aspirin Extra 500 mg PO Q6HR PRN #30 tablet 05/21/20 Unknown Rx Strength] Famotidine [Pepcid] 20 mg PO BID #60 tablet 05/21/20 Unknown Rx Angelica Root [Angelica] 250 mg PO QID PRN #30 capsule 05/21/20 Unknown Rx Metoclopramide [Reglan] 10 mg PO QID PRN #30 tablet 05/21/20 Unknown Rx Ciprofloxacin HCl [Ciprofloxacin 500 mg PO BID 7 Days #14 tablet 08/22/20 Unknown Rx TAB] Ibuprofen [Motrin 800 MG tab] 800 mg PO Q8HR PRN #30 tablet 08/22/20 Unknown Rx Azithromycin [Zithromax Z-LASHAUN] 250 mg PO DAILY #6 tablet 02/14/21 Unknown Rx Hyoscyamine Subl [Levsin Sl 0.125 0.125 mg SL Q4HR PRN #20 tablet 04/03/21 Unknown Rx TAB] Lactulose [Cephulac] 30 gm PO Q6HR #450 ml 04/03/21 Unknown Rx Meclizine [Antivert] 12.5 mg PO BID PRN 7 Days #14 tab 02/17/22 Unknown Rx Neomy/Polymyx B/Hc Otic Susp 4 drops AD TID 7 Days #1 bottle 02/17/22 Unknown Rx [Cortisporin (Otic) Susp] amLODIPine 5 mg PO DAILY #60 tab 02/17/22 Unknown Rx Allergies Allergy/AdvReac Type Severity Reaction Status Date / Time No Known Allergies Allergy Verified 02/14/21 10:21 ED Dental HPI - General Chief complaint: Earache Stated complaint: HEAD PAIN AND RT EAR PAIN Time Seen by Provider: 02/17/22 10:14 Source: patient Mode of arrival: Ambulatory Limitations: No Limitations - Related Data Home Medications Medication Instructions Recorded Confirmed Last Taken Cardizem 240 mg PO DAILY 02/13/15 02/13/15 Unknown Previous Rx's Medication Instructions Recorded Last Taken Type Sulfamethoxazole/Trimethoprim 1 each PO BID #14 tablet 12/19/19 Unknown Rx [Bactrim DS TAB] Docusate Sodium [Colace] 100 mg PO BID PRN #14 capsule 12/24/19 Unknown Rx Acetaminophen [Non-Aspirin Extra 500 mg PO Q6HR PRN #30 tablet 05/21/20 Unknown Rx Strength] Famotidine [Pepcid] 20 mg PO BID #60 tablet 05/21/20 Unknown Rx Angelica Root [Angelica] 250 mg PO QID PRN #30 capsule 05/21/20 Unknown Rx Metoclopramide [Reglan] 10 mg PO QID PRN #30 tablet 05/21/20 Unknown Rx Ciprofloxacin HCl [Ciprofloxacin 500 mg PO BID 7 Days #14 tablet 08/22/20 Unknown Rx TAB] Ibuprofen [Motrin 800 MG tab] 800 mg PO Q8HR PRN #30 tablet 08/22/20 Unknown Rx Azithromycin [Zithromax Z-LASHAUN] 250 mg PO DAILY #6 tablet 02/14/21 Unknown Rx Hyoscyamine Subl [Levsin Sl 0.125 0.125 mg SL Q4HR PRN #20 tablet 04/03/21 Unknown Rx TAB] Lactulose [Cephulac] 30 gm PO Q6HR #450 ml 04/03/21 Unknown Rx Meclizine [Antivert] 12.5 mg PO BID PRN 7 Days #14 tab 02/17/22 Unknown Rx Neomy/Polymyx B/Hc Otic Susp 4 drops AD TID 7 Days #1 bottle 02/17/22 Unknown Rx [Cortisporin (Otic) Susp] amLODIPine 5 mg PO DAILY #60 tab 02/17/22 Unknown Rx Allergies Allergy/AdvReac Type Severity Reaction Status Date / Time No Known Allergies Allergy Verified 02/14/21 10:21 ED Review of Systems ROS: Stated complaint: HEAD PAIN AND RT EAR PAIN Other details as noted in HPI Comment: All other systems reviewed and negative Constitutional: no symptoms reported Eyes: denies: eye pain, eye discharge, vision change ENT: ear pain Respiratory: denies: cough, shortness of breath, wheezing ED Past Medical Hx - Past Medical History Hx Hypertension: Yes Hx Diabetes: Yes Hx Asthma: Yes Additional medical history: MVP - Surgical History Additional Surgical History: C section. Tubal ligation. Hernia repair. open heart - Social History Smoking Status: Never Smoker Substance Use Type: None - Medications Home Medications: Home Medications Medication Instructions Recorded Confirmed Last Taken Type Cardizem 240 mg PO DAILY 02/13/15 02/13/15 Unknown History Sulfamethoxazole/Trimethoprim 1 each PO BID #14 tablet 12/19/19 Unknown Rx [Bactrim DS TAB] Docusate Sodium [Colace] 100 mg PO BID PRN #14 capsule 12/24/19 Unknown Rx Acetaminophen [Non-Aspirin Extra 500 mg PO Q6HR PRN #30 tablet 05/21/20 Unknown Rx Strength] Famotidine [Pepcid] 20 mg PO BID #60 tablet 05/21/20 Unknown Rx Angelica Root [Angelica] 250 mg PO QID PRN #30 capsule 05/21/20 Unknown Rx Metoclopramide [Reglan] 10 mg PO QID PRN #30 tablet 05/21/20 Unknown Rx Ciprofloxacin HCl [Ciprofloxacin 500 mg PO BID 7 Days #14 tablet 08/22/20 Unknown Rx TAB] Ibuprofen [Motrin 800 MG tab] 800 mg PO Q8HR PRN #30 tablet 08/22/20 Unknown Rx Azithromycin [Zithromax Z-LASHAUN] 250 mg PO DAILY #6 tablet 02/14/21 Unknown Rx Hyoscyamine Subl [Levsin Sl 0.125 0.125 mg SL Q4HR PRN #20 tablet 04/03/21 Unknown Rx TAB] Lactulose [Cephulac] 30 gm PO Q6HR #450 ml 04/03/21 Unknown Rx Meclizine [Antivert] 12.5 mg PO BID PRN 7 Days #14 tab 02/17/22 Unknown Rx Neomy/Polymyx B/Hc Otic Susp 4 drops AD TID 7 Days #1 bottle 02/17/22 Unknown Rx [Cortisporin (Otic) Susp] amLODIPine 5 mg PO DAILY #60 tab 02/17/22 Unknown Rx ED Physical Exam - General Limitations: No Limitations General appearance: alert, in no apparent distress - Head Head exam: Present: atraumatic, normocephalic - Eye Eye exam: Present: normal appearance - ENT ENT exam: Present: mucous membranes moist. Absent: normal external ear exam - Expanded ENT Exam Expanded TM/Canal exam: Loss of Landmarks: Right TM, Cerumen Impaction: Right TM, Canal Discharge: Right TM, Canal Tenderness: Right TM Mouth exam: Present: normal external inspection - Neck Neck exam: Present: full ROM. Absent: tenderness - Respiratory Respiratory exam: Present: normal lung sounds bilaterally. Absent: respiratory distress - Cardiovascular Cardiovascular Exam: Present: regular rate, normal rhythm. Absent: systolic murmur, diastolic murmur, rubs, gallop - Extremities Exam Extremities exam: Present: normal inspection - Back Exam Back exam: Present: normal inspection - Neurological Exam Neurological exam: Present: alert, oriented X3, normal gait - Psychiatric Psychiatric exam: Present: normal affect, normal mood - Skin Skin exam: Present: warm, dry, intact, normal color. Absent: rash ED Course Vital Signs 02/17/22 08:16 Temperature 98.7 F Pulse Rate 115 H Respiratory 18 Rate Blood Pressure 163/115 [Right] O2 Sat by Pulse 98 Oximetry ED Medical Decision Making - Medical Decision Making 31-year-old -[place] female presents to the emergency room complaining of right ear pain and headache x2 days. Patient states that her right ear she tried to flush with eardrops and now has ear pain. She states that her headache started on the right side and it feels full. Says on the left side she has a mild headache. She does admit to some nausea but no vomiting. She states that she has some dizziness which consists of the room is spinning. She denies any recent falls. She denies any vomiting. States that she had a subjective fever.It was noted that patient's blood pressure is elevated and review of chart shows is been elevated several times in the past. When asked patient states that her doctor took her off her lisinopril just before the pandemic and has not followed up. Her headaches could be contributory to her unstable blood pressure. I will start patient on amlodipine 5 mg daily dispense 60 and instructed patient to follow-up with her primary care provider. Discussed with patient I am giving her 60 pills should be take her at least 2 months to get into her primary care provider. Patient verbalized understanding. Vital signs have been requested before patient is discharged home. Patient will be treated for her headache, otitis externa and concerns for vertigo. Patient follow-up with her primary care provider. Critical care attestation.: If time is entered above; I have spent that time in minutes in the direct care of this critically ill patient, excluding procedure time. ED Disposition Clinical Impression: Vertigo Otitis externa Qualifiers: Otitis externa type: unspecified type Chronicity: acute Laterality: right Qualified Code(s): H60.501 - Unspecified acute noninfective otitis externa, right ear Hypertension Qualifiers: Hypertension type: primary hypertension Qualified Code(s): I10 - Essential (primary) hypertension Headache Qualifiers: Headache type: unspecified Headache chronicity pattern: acute headache Intractability: intractable Qualified Code(s): R51.9 - Headache, unspecified Disposition: 01 HOME / SELF CARE / HOMELESS Is pt being admited?: No Does the pt Need Aspirin: No Condition: Stable Instructions: Hypertension (ED), Ear Drops, Adult, [id number], Otitis Externa, [id number], Hypertension, Adult, [id number], Managing Your Hypertension Additional Instructions: Please take your medication as prescribed. Is very important you call and make an appointment with your primary care provider to have your blood pressure rechecked. Prescriptions: amLODIPine 5 mg PO DAILY #60 tab Meclizine [Antivert] 12.5 mg PO BID PRN 7 Days #14 tab PRN Reason: Vertigo Neomy/Polymyx B/Hc Otic Susp [Cortisporin (Otic) Susp] 4 drops AD TID 7 Days #1 bottle Referrals: PRIMARY CARE, [Primary Care Provider] - 3-5 Days Forms: Work/School Release Form(ED) Time of Disposition: 10:34
[2022-02-17 11:07] VITALS: BP 152/100
== END 2022-02-17 11:08 | disposition home or self-care (01) ==
LOC: ED 08:02
DX: R42 Dizziness and giddiness (principal); H60.91 Unspecified otitis externa, right ear; I10 Essential (primary) hypertension; R51.9 Headache, unspecified; E11.8 Type 2 diabetes mellitus with unspecified complications; J45.909 Unspecified asthma, uncomplicated
CPT/HCPCS: 96374; 96375; 99282; J1200; J1885; J2765